=== PATIENT | male | born 1960 | race Two or more races ===

== ENCOUNTER 2016-09-28 11:30 | Emergency (ER) | payer OTHER ==
[~2016-09-28] VITALS: Ht 165.1 cm; Wt 65.0 kg
[~2016-09-28 11:30] MED LIST: AMIL5TAB2 PO; ASPI-496 PO; ASPI-621 PO; ASPI81TA50 PO; ATOR20TA PO; ATOR20TA9 PO; CHOL100018 PO; CIPR500T3 PO; CLIN300C93 PO; CYCL50CA3 PO; FERR324T5 PO; FERR325T20 PO; FURO-92 PO; FURO40TA6 PO; LEVE750T13 PO; LEVE750T8 PO; LISI-170 PO; LISI5TAB7 PO; METO5TAB5 PO; MULT-717 PO; POTA10TA11 PO; POTA10TA12 PO; POTA10TA90 PO; POTA20TA14 PO; PRED20TA PO; Prednisone PO; RIVA15TA PO; RIVA20TA PO; SULF1TAB3 PO; TORS20TA2 PO; TRAM50TA2 PO; TRAZ100T15 PO; VITA150T PO
[2016-09-28 11:38] VITALS: BP 90/60
[2016-09-28 12:33] LABS: BLOOD UREA NITROGEN 22 mg/dL (7-18)
== END 2016-09-28 14:52 | disposition home or self-care (01) ==
LOC: ED 11:44
DX: Z72.820 Sleep deprivation (principal); E78.5 Hyperlipidemia, unspecified; E87.5 Hyperkalemia; I12.9 Hypertensive chronic kidney disease with stage 1 through stage 4 chronic kidney disease, or unspecified chronic kidney disease; N18.9 Chronic kidney disease, unspecified; N04.9 Nephrotic syndrome with unspecified morphologic changes; I25.10 Atherosclerotic heart disease of native coronary artery without angina pectoris
CPT/HCPCS: 36415; 80048; 82040; 85025; 93005; 99285

== ENCOUNTER 2016-10-30 20:06 | Emergency (ER) | payer OTHER ==
[~2016-10-30] VITALS: Ht 165.1 cm; Wt 68.2 kg
[2016-10-30] MEDS ORDERED: SODIUM CHLORIDE 0.9% 1,000ML IVBOLUS ONE (20:30)
[2016-10-30 21:21] LABS: BLOOD UREA NITROGEN 14 mg/dL (7-18)
[2016-10-30 22:25] VITALS: BP 102/59
== END 2016-10-30 22:26 | disposition home or self-care (01) ==
LOC: ED 20:43
DX: R56.9 Unspecified convulsions (principal); G40.909 Epilepsy, unspecified, not intractable, without status epilepticus; E78.5 Hyperlipidemia, unspecified; E87.5 Hyperkalemia; I25.2 Old myocardial infarction; I12.9 Hypertensive chronic kidney disease with stage 1 through stage 4 chronic kidney disease, or unspecified chronic kidney disease; N18.9 Chronic kidney disease, unspecified; I95.9 Hypotension, unspecified; N28.9 Disorder of kidney and ureter, unspecified; I25.10 Atherosclerotic heart disease of native coronary artery without angina pectoris
CPT/HCPCS: 36415; 80048; 80185; 96360; 99284; J7030

== ENCOUNTER 2017-04-17 12:24 | Emergency (ER) | payer OTHER ==
[~2017-04-17] VITALS: Ht 152.4 cm; Wt 61.4 kg
[~2017-04-17 12:24] MED LIST changes: +CHOL100012 PO; -CHOL100018 PO; +CLIN300C8 PO; -CLIN300C93 PO; +FERR325T18 PO; -FERR325T20 PO; +POTA10TA6 PO; -POTA10TA90 PO; +SULF-169 PO; -SULF1TAB3 PO
[2017-04-17] MEDS ORDERED: KETOROLAC 30 MG/1 ML ONE (13:16)
[2017-04-17] MEDS ORDERED: KETOROLAC 30 MG/1 ML IM ONE (13:30)
[2017-04-17 13:53] VITALS: BP 124/84
== END 2017-04-17 13:56 | disposition home or self-care (01) ==
LOC: ED 13:49
DX: S39.012A Strain of muscle, fascia and tendon of lower back, initial encounter (principal); M54.42 Lumbago with sciatica, left side; I12.9 Hypertensive chronic kidney disease with stage 1 through stage 4 chronic kidney disease, or unspecified chronic kidney disease; N18.9 Chronic kidney disease, unspecified; E78.5 Hyperlipidemia, unspecified; I25.10 Atherosclerotic heart disease of native coronary artery without angina pectoris; I25.2 Old myocardial infarction; X58.XXXA Exposure to other specified factors, initial encounter; Y93.89 Activity, other specified; Y92.89 Other specified places as the place of occurrence of the external cause; Y99.8 Other external cause status
CPT/HCPCS: 72110; 96372; 99284; J1885

== ENCOUNTER 2017-05-01 09:13 | Emergency (ER) | payer OTHER ==
[~2017-05-01] VITALS: Ht 154.9 cm; Wt 59.8 kg
[2017-05-01 09:15] VITALS: BP 109/73
[2017-05-01] MEDS ORDERED: METHOCARBAMOL 750 MG TABLET ONE (10:10)
[2017-05-01] MEDS ORDERED: KETOROLAC 30 MG/1 ML ONE (10:10)
[2017-05-01] MEDS ORDERED: METHOCARBAMOL 750 MG TABLET PO ONE (10:30)
[2017-05-01] MEDS ORDERED: KETOROLAC 30 MG/1 ML IM ONE (10:30)
== END 2017-05-01 10:52 | disposition home or self-care (01) ==
LOC: ED 10:27
DX: M54.42 Lumbago with sciatica, left side (principal); I25.2 Old myocardial infarction; E78.00 Pure hypercholesterolemia, unspecified; I12.9 Hypertensive chronic kidney disease with stage 1 through stage 4 chronic kidney disease, or unspecified chronic kidney disease; N18.9 Chronic kidney disease, unspecified; I25.10 Atherosclerotic heart disease of native coronary artery without angina pectoris; L02.611 Cutaneous abscess of right foot; Z86.711 Personal history of pulmonary embolism
CPT/HCPCS: 96372; 99283; J1885; J7512

== ENCOUNTER 2017-07-07 06:19 | Emergency (ER) | payer OTHER ==
[~2017-07-07] VITALS: Ht 170.2 cm; Wt 59.6 kg
[2017-07-07 06:21] VITALS: BP 110/74
[2017-07-07] MEDS ORDERED: DIAZEPAM 5 MG TABLET PO ONE (07:00)
[2017-07-07] MEDS ORDERED: KETOROLAC 30 MG/1 ML IM ONE (07:00)
[2017-07-07] MEDS ORDERED: DIAZEPAM 5 MG TABLET ONE (07:01)
[2017-07-07] MEDS ORDERED: KETOROLAC 30 MG/1 ML ONE (07:07)
== END 2017-07-07 08:16 | disposition home or self-care (01) ==
LOC: ED 07:55
DX: M54.42 Lumbago with sciatica, left side (principal); E78.00 Pure hypercholesterolemia, unspecified; I12.9 Hypertensive chronic kidney disease with stage 1 through stage 4 chronic kidney disease, or unspecified chronic kidney disease; N18.9 Chronic kidney disease, unspecified; I25.2 Old myocardial infarction; I95.9 Hypotension, unspecified
CPT/HCPCS: 96372; 99283; J1885

== ENCOUNTER 2017-07-08 08:40 | Emergency (ER) | payer OTHER ==
[~2017-07-08] VITALS: Ht 157.5 cm; Wt 60.3 kg
[2017-07-08 10:48] VITALS: BP 101/65
== END 2017-07-08 10:50 | disposition home or self-care (01) ==
LOC: ED 09:09
DX: M54.32 Sciatica, left side (principal); E78.00 Pure hypercholesterolemia, unspecified; N18.9 Chronic kidney disease, unspecified; I12.9 Hypertensive chronic kidney disease with stage 1 through stage 4 chronic kidney disease, or unspecified chronic kidney disease; I25.2 Old myocardial infarction; I25.10 Atherosclerotic heart disease of native coronary artery without angina pectoris; Z86.711 Personal history of pulmonary embolism; Z86.718 Personal history of other venous thrombosis and embolism
CPT/HCPCS: 72110; 99284; J7512

== ENCOUNTER 2017-07-12 23:18 | Emergency (ER) | payer OTHER ==
[~2017-07-12] VITALS: Ht 152.4 cm; Wt 59.7 kg
[2017-07-12 23:28] VITALS: BP 101/69
[2017-07-13 00:04] LABS: BASOPHILS # (AUTO) 0.03 x10^3/uL (0-0.1); BASOPHILS % (AUTO) 0 % (0-1); EOSINOPHILS # (AUTO) 0.22 x10^3/uL (0-0.4); EOSINOPHILS % (AUTO) 2 % (1-7); LYMPHOCYTES # (AUTO) 2.24 x10^3/uL (1-3.4); LYMPHOCYTES % (AUTO) 25 % (22-44); MD NO; MEAN CORPUSCULAR HEMOGLOBIN 32.5 pg (27.5-34.5); MEAN CORPUSCULAR HGB CONC 34.2 g/dL (33.2-36.2); MEAN PLATELET VOLUME 7.8 fL (7.4-10.4); MONOCYTES # (AUTO) 0.66 x10^3/uL (0.2-0.8); MONOCYTES % (AUTO) 7 % (2-9); NEUTROPHILS # (AUTO) 5.77 x10^3/uL (1.8-6.8); NEUTROPHILS % (AUTO) 65 % (42-75); PLATELET COUNT 308 x10^3/uL (130-400); RED BLOOD COUNT 4.63 x10^6/uL (4.38-5.82)
[2017-07-13 00:13] LABS: ALBUMIN 3.6 g/dL (3.4-5.0); ANION GAP 7 mmol/L (5-15); CALCIUM 8.3 mg/dL (8.5-10.1); CHLORIDE 105 mmol/L (98-107); CREATININE 1.04 mg/dL (0.7-1.3)
[2017-07-13 01:09] LABS: INTERNATIONAL NORMALIZED RATIO 0.95 (0.93-1.1); PROTHROMBIN TIME 9.8 Seconds (9.6-11.5)
[2017-07-13] MEDS ORDERED: RIVAROXABAN 15 MG TABLET PO ONE (01:30)
== END 2017-07-13 ==
LOC: ED 23:54
DX: I82.432 Acute embolism and thrombosis of left popliteal vein (principal); E78.00 Pure hypercholesterolemia, unspecified; I13.10 Hypertensive heart and chronic kidney disease without heart failure, with stage 1 through stage 4 chronic kidney disease, or unspecified chronic kidney disease; N18.9 Chronic kidney disease, unspecified; I25.2 Old myocardial infarction; I25.10 Atherosclerotic heart disease of native coronary artery without angina pectoris; Z86.718 Personal history of other venous thrombosis and embolism; Z86.711 Personal history of pulmonary embolism
CPT/HCPCS: 36415; 80048; 82040; 85025; 85610; 85730; 99285

== ENCOUNTER 2017-08-06 16:47 | Emergency (ER) | payer OTHER ==
[~2017-08-06] VITALS: Ht 152.4 cm; Wt 59.4 kg
[2017-08-06 16:52] VITALS: BP 95/60
[2017-08-06] MEDS ORDERED: HYDROcodone/APAP 5/325 TABLET PO ONE (18:00)
[2017-08-06] MEDS ORDERED: HYDROcodone/APAP 5/325 TABLET ONE (18:08)
== END 2017-08-06 18:27 | disposition home or self-care (01) ==
LOC: ED 18:21
DX: M79.662 Pain in left lower leg (principal); I82.532 Chronic embolism and thrombosis of left popliteal vein; E78.00 Pure hypercholesterolemia, unspecified; I25.2 Old myocardial infarction; I25.10 Atherosclerotic heart disease of native coronary artery without angina pectoris; N18.9 Chronic kidney disease, unspecified; E78.5 Hyperlipidemia, unspecified; Z88.0 Allergy status to penicillin
CPT/HCPCS: 99283

== ENCOUNTER 2017-10-03 19:29 | Inpatient (IN) | payer OTHER ==
[~2017-10-03] VITALS: Ht 154.9 cm; Wt 63.0 kg
[2017-10-03] MEDS ORDERED: SODIUM CHLORIDE FLUSH 10ML SYR IVF ONE (20:00)
[2017-10-03] MEDS ORDERED: SODIUM CHLORIDE 0.9% 1,000ML IVBOLUS ONE ×2 (20:00→23:00)
[2017-10-03] MEDS ORDERED: ONDANSETRON 2MG/ML, 2ML ONE (20:00)
[2017-10-03] MEDS ORDERED: ONDANSETRON 2MG/ML, 2ML IVPush ONE (20:00)
[2017-10-03 20:02] LABS: BASOPHILS # (AUTO) 0.01 x10^3/uL (0-0.1); BASOPHILS % (AUTO) 0 % (0-1); EOSINOPHILS # (AUTO) 0.01 x10^3/uL (0-0.4); EOSINOPHILS % (AUTO) 0 % (1-7); LYMPHOCYTES # (AUTO) 0.82 x10^3/uL (1-3.4); LYMPHOCYTES % (AUTO) 8 % (22-44); MD NO; MEAN CORPUSCULAR HEMOGLOBIN 32.8 pg (27.5-34.5); MEAN CORPUSCULAR HGB CONC 34.2 g/dL (33.2-36.2); MEAN PLATELET VOLUME 8.4 fL (7.4-10.4); MONOCYTES # (AUTO) 0.41 x10^3/uL (0.2-0.8); MONOCYTES % (AUTO) 4 % (2-9); NEUTROPHILS % (AUTO) 88 % (42-75); PLATELET COUNT 245 x10^3/uL (130-400); RED BLOOD COUNT 4.51 x10^6/uL (4.38-5.82); RED CELL DISTRIBUTION WIDTH 12.8 % (9.4-14.8)
[2017-10-03 20:10] LABS: ANION GAP 6 mmol/L (5-15); CALCIUM 9.3 mg/dL (8.5-10.1); CHLORIDE 108 mmol/L (98-107); CREATININE 1.05 mg/dL (0.7-1.3)
[2017-10-03 20:11] LABS: ALANINE AMINOTRANSFERASE 34 U/L (12-78)
[2017-10-03 20:13] LABS: ALKALINE PHOSPHATASE 120 U/L (45-117); BILIRUBIN,TOTAL 0.4 mg/dL (0.2-1.0); TOTAL PROTEIN 7.4 g/dL (6.4-8.2)
[2017-10-03 20:29] LABS: TROPONIN I < 0.015 ng/mL (0.000-0.045)
[2017-10-03] MEDS ORDERED: PROMETHAZINE 25 MG/ML, 1ML IM PRN (23:30)
[2017-10-03] MEDS ORDERED: BISACODYL 10 MG SUPP PR PRN (23:30)
[2017-10-03] MEDS ORDERED: OXYcodone IR 5MG TABLET PO PRN (23:30)
[2017-10-03] MEDS ORDERED: ONDANSETRON 2MG/ML, 2ML IVPush PRN (23:30)
[2017-10-03] MEDS ORDERED: DOCUSATE 100 MG CAPSULE PO PRN (23:30)
[2017-10-03] MEDS ORDERED: morphine SULFATE 10 MG/ML, 1ML IVPush PRN (23:30)
[2017-10-03] MEDS ORDERED: ACETAMINOPHEN 325 MG TABLET PO PRN (23:30)
[2017-10-03] MEDS ORDERED: ONDANSETRON ODT 4 MG PO PRN (23:30)
[2017-10-03] MEDS ORDERED: POLYETHYLENE GLYCOL 17 GM PACKET PO PRN (23:30)
[2017-10-03] MEDS ORDERED: hydrALAzine 20 MG/ML, 1ML IVPush PRN (23:30)
[2017-10-03 23:38] LABS: MICROSCOPIC NOT IND
[2017-10-03 23:45] LABS: CULTURE INDICATED? NO
[2017-10-04] VITALS (8 sets, daily range): BP systolic 91–116; BP diastolic 54–73
[2017-10-04 00:16] LABS: THYROID STIMULATING HORMONE 0.823 mIU/L (0.358-3.740)
[2017-10-04 00:22] LABS: HEMOGLOBIN A1C 5.6 % (4.2-6.3)
[2017-10-04] MEDS: LEVETIRACETAM 500 MG TABLET PO SCH ×3 (00:25→20:09)
[2017-10-04] MEDS: ATORVASTATIN 20 MG TABLET PO SCH ×2 (00:25→20:09)
[2017-10-04] MEDS: SODIUM CHLORIDE 0.9% 1,000 ML IV SCH ×2 (00:26→12:15)
[2017-10-04 02:56] LABS: TROPONIN I < 0.015 ng/mL (0.000-0.045)
[2017-10-04] MEDS ORDERED: RIVAROXABAN 20 MG TABLET PO SCH (06:00)
[2017-10-04] MEDS: FERROUS SULFATE 325 MG TABLET PO SCH (09:51)
[2017-10-04] MEDS: RIVAROXABAN 20 MG TABLET PO SCH (09:51)
[2017-10-04] MEDS: ASPIRIN 81 MG TABLET CHEW PO SCH (09:51)
[2017-10-04] MEDS: CHOLECALCIFEROL 1,000 UNIT TABLET PO SCH (09:51)
[2017-10-04] MEDS: MULTIVITAMIN 1 TABLET PO SCH (09:51)
[2017-10-04] MEDS: MULTIVITS,STRESS FORMULA 1 TABLET PO SCH (09:51)
[2017-10-05 01:23] VITALS: BP 98/60
[2017-10-05 03:47] VITALS: BP 121/77
[2017-10-05 07:49] VITALS: BP 116/70
[2017-10-05] MEDS: RIVAROXABAN 20 MG TABLET PO SCH (08:53)
[2017-10-05] MEDS: ASPIRIN 81 MG TABLET CHEW PO SCH (08:53)
[2017-10-05] MEDS: MULTIVITS,STRESS FORMULA 1 TABLET PO SCH (08:53)
[2017-10-05] MEDS: CHOLECALCIFEROL 1,000 UNIT TABLET PO SCH (08:53)
[2017-10-05] MEDS: LEVETIRACETAM 500 MG TABLET PO SCH (08:53)
[2017-10-05] MEDS: FERROUS SULFATE 325 MG TABLET PO SCH (08:53)
[2017-10-05] MEDS: MULTIVITAMIN 1 TABLET PO SCH (08:53)
== END 2017-10-05 11:35 | disposition home or self-care (01) | DRG 315 ==
LOC: ED 23:06 → EDIP 23:07 → 4EST 23:52
PROVIDERS: ADMIT Internal Medicine; ATTEND Internal Medicine
DX: I95.0 Idiopathic hypotension (principal); D68.59 Other primary thrombophilia; E11.22 Type 2 diabetes mellitus with diabetic chronic kidney disease; E78.5 Hyperlipidemia, unspecified; R11.2 Nausea with vomiting, unspecified; R42 Dizziness and giddiness; R55 Syncope and collapse; G40.909 Epilepsy, unspecified, not intractable, without status epilepticus; I12.9 Hypertensive chronic kidney disease with stage 1 through stage 4 chronic kidney disease, or unspecified chronic kidney disease; I25.10 Atherosclerotic heart disease of native coronary artery without angina pectoris; E11.69 Type 2 diabetes mellitus with other specified complication; M27.2 Inflammatory conditions of jaws; N18.3 Chronic kidney disease, stage 3 (moderate); Z79.899 Other long term (current) drug therapy; Z86.711 Personal history of pulmonary embolism; I25.2 Old myocardial infarction; Z87.441 Personal history of nephrotic syndrome; Z86.718 Personal history of other venous thrombosis and embolism; Z79.82 Long term (current) use of aspirin
CPT/HCPCS: 36415; 80053; 80307; 81003; 83036; 83690; 83735; 84443; 84484; 85025; 93005; 96374; J2405; J7030

== ENCOUNTER 2017-12-11 12:12 | Emergency (ER) | payer OTHER ==
[~2017-12-11] VITALS: Ht 157.5 cm; Wt 61.0 kg
[~2017-12-11 12:12] MED LIST changes: +TRAZ-137 PO; -TRAZ100T15 PO
[2017-12-11 12:17] VITALS: BP 128/84
== END 2017-12-11 14:05 | disposition home or self-care (01) ==
LOC: ED 13:14
DX: L98.9 Disorder of the skin and subcutaneous tissue, unspecified (principal); G89.11 Acute pain due to trauma; M79.675 Pain in left toe(s); I10 Essential (primary) hypertension; I25.10 Atherosclerotic heart disease of native coronary artery without angina pectoris; I25.2 Old myocardial infarction; E11.22 Type 2 diabetes mellitus with diabetic chronic kidney disease; I13.10 Hypertensive heart and chronic kidney disease without heart failure, with stage 1 through stage 4 chronic kidney disease, or unspecified chronic kidney disease; N18.9 Chronic kidney disease, unspecified; E78.00 Pure hypercholesterolemia, unspecified; Z86.718 Personal history of other venous thrombosis and embolism
CPT/HCPCS: 99284

== ENCOUNTER 2017-12-19 14:02 | Emergency (ER) | payer OTHER ==
[~2017-12-19] VITALS: Ht 154.9 cm; Wt 63.3 kg
[2017-12-19 14:51] LABS: BASOPHILS # (AUTO) 0.03 x10^3/uL (0-0.1); BASOPHILS % (AUTO) 1 % (0-1); EOSINOPHILS # (AUTO) 0.25 x10^3/uL (0-0.4); EOSINOPHILS % (AUTO) 4 % (1-7); LYMPHOCYTES # (AUTO) 1.71 x10^3/uL (1-3.4); LYMPHOCYTES % (AUTO) 27 % (22-44); MD NO; MEAN CORPUSCULAR HEMOGLOBIN 33.7 pg (27.5-34.5); MEAN CORPUSCULAR HGB CONC 35.6 g/dL (33.2-36.2); MEAN CORPUSCULAR VOLUME 94.6 fL (81-97); MEAN PLATELET VOLUME 8.3 fL (7.4-10.4); MONOCYTES # (AUTO) 0.58 x10^3/uL (0.2-0.8); MONOCYTES % (AUTO) 9 % (2-9); NEUTROPHILS # (AUTO) 3.76 x10^3/uL (1.8-6.8); NEUTROPHILS % (AUTO) 59 % (42-75); PLATELET COUNT 253 x10^3/uL (130-400); RED BLOOD COUNT 4.91 x10^6/uL (4.38-5.82); RED CELL DISTRIBUTION WIDTH 12.5 % (9.4-14.8)
[2017-12-19 14:54] LABS: ALBUMIN 3.7 g/dL (3.4-5.0); ANION GAP 6 mmol/L (5-15); CALCIUM 8.7 mg/dL (8.5-10.1); CHLORIDE 108 mmol/L (98-107)
[2017-12-19 14:57] LABS: ALKALINE PHOSPHATASE 115 U/L (45-117); BILIRUBIN,TOTAL 0.5 mg/dL (0.2-1.0); CREATININE 1.21 mg/dL (0.7-1.3); TOTAL PROTEIN 7.4 g/dL (6.4-8.2)
[2017-12-19 15:07] LABS: ALANINE AMINOTRANSFERASE 40 U/L (12-78)
[2017-12-19] MEDS ORDERED: [UNRECOGNIZED DRUG - REMARK] PO (15:33)
[2017-12-19] MEDS ORDERED: ATOR20TA9 PO (15:33)
[2017-12-19] MEDS ORDERED: RIVA20TA PO (15:33)
[2017-12-19 16:09] VITALS: BP 114/79
[2017-12-19 16:09] LABS: MICROSCOPIC INDICATED
[2017-12-19 16:25] LABS: CULTURE INDICATED? NO
== END 2017-12-19 16:11 | disposition home or self-care (01) ==
LOC: ED 15:10
DX: R14.0 Abdominal distension (gaseous) (principal)
CPT/HCPCS: 36415; 80053; 81001; 83690; 85025; 93005; 99285

== ENCOUNTER 2018-02-01 09:28 | Emergency (ER) | payer OTHER ==
[~2018-02-01] VITALS: Ht 157.5 cm; Wt 63.6 kg
[~2018-02-01 09:28] MED LIST changes: +[UNRECOGNIZED DRUG - REMARK] PO
[2018-02-01 09:44] VITALS: BP 113/71
== END 2018-02-01 10:46 | disposition home or self-care (01) ==
LOC: ED 10:40
DX: I87.2 Venous insufficiency (chronic) (peripheral) (principal); I83.813 Varicose veins of bilateral lower extremities with pain; L20.84 Intrinsic (allergic) eczema; E11.9 Type 2 diabetes mellitus without complications; E78.00 Pure hypercholesterolemia, unspecified; I12.9 Hypertensive chronic kidney disease with stage 1 through stage 4 chronic kidney disease, or unspecified chronic kidney disease; N18.9 Chronic kidney disease, unspecified; I25.2 Old myocardial infarction; I25.10 Atherosclerotic heart disease of native coronary artery without angina pectoris; Z86.718 Personal history of other venous thrombosis and embolism
CPT/HCPCS: 99283

== ENCOUNTER 2018-02-04 10:25 | Emergency (ER) | payer OTHER ==
[~2018-02-04] VITALS: Ht 154.9 cm; Wt 64.0 kg
[2018-02-04 11:39] LABS: BASOPHILS # (AUTO) 0.03 x10^3/uL (0-0.1); BASOPHILS % (AUTO) 1 % (0-1); EOSINOPHILS # (AUTO) 0.31 x10^3/uL (0-0.4); EOSINOPHILS % (AUTO) 5 % (1-7); LYMPHOCYTES % (AUTO) 25 % (22-44); MD NO; MEAN CORPUSCULAR HEMOGLOBIN 32.6 pg (27.5-34.5); MEAN CORPUSCULAR HGB CONC 34.5 g/dL (33.2-36.2); MEAN CORPUSCULAR VOLUME 94.5 fL (81-97); MEAN PLATELET VOLUME 7.9 fL (7.4-10.4); MONOCYTES # (AUTO) 0.52 x10^3/uL (0.2-0.8); MONOCYTES % (AUTO) 9 % (2-9); NEUTROPHILS # (AUTO) 3.54 x10^3/uL (1.8-6.8); NEUTROPHILS % (AUTO) 60 % (42-75); PLATELET COUNT 282 x10^3/uL (130-400); RED CELL DISTRIBUTION WIDTH 12.3 % (9.4-14.8)
[2018-02-04 11:40] LABS: HCT (SEDRATE) 44.4 % (39.2-51.8)
[2018-02-04 11:49] LABS: ALBUMIN 3.7 g/dL (3.4-5.0); ANION GAP 7 mmol/L (5-15); CALCIUM 9.1 mg/dL (8.5-10.1); CHLORIDE 109 mmol/L (98-107)
[2018-02-04 11:53] LABS: ALANINE AMINOTRANSFERASE 38 U/L (12-78); ALKALINE PHOSPHATASE 110 U/L (45-117); BILIRUBIN,TOTAL 0.3 mg/dL (0.2-1.0); CREATININE 1.01 mg/dL (0.7-1.3); TOTAL PROTEIN 7.3 g/dL (6.4-8.2)
[2018-02-04 12:00] VITALS: BP 128/89
== END 2018-02-04 12:49 | disposition home or self-care (01) ==
LOC: ED 11:32
DX: L20.9 Atopic dermatitis, unspecified (principal); E11.22 Type 2 diabetes mellitus with diabetic chronic kidney disease; I12.9 Hypertensive chronic kidney disease with stage 1 through stage 4 chronic kidney disease, or unspecified chronic kidney disease; N18.9 Chronic kidney disease, unspecified; E78.00 Pure hypercholesterolemia, unspecified; I25.2 Old myocardial infarction; E78.5 Hyperlipidemia, unspecified; Z86.718 Personal history of other venous thrombosis and embolism
CPT/HCPCS: 36415; 80053; 85025; 85651; 99284

== ENCOUNTER 2018-06-04 06:41 | Emergency (ER) | payer OTHER ==
[~2018-06-04] VITALS: Ht 170.2 cm; Wt 63.3 kg
[~2018-06-04 06:41] MED LIST changes: -ASPI-621 PO; +ASPI81TA45 PO; +ATOR20TA37 PO; -ATOR20TA9 PO; -LEVE750T13 PO; +LEVE750T21 PO
[2018-06-04 06:43] VITALS: BP 130/75
--- NOTE | 2018-06-04 07:10 | NUR ---
FIRST CONTACT WITH PT. JACQUI at bedside. Pt states he fell a couple of weeks ago and he has had pain on his left flank and buttock since. Pt denies loss of bowel or bladder control, numbness, tingling, or loss of sensation. Pt denies cp, sob, n/v/d, or ecchymosis. Pt states he took some over the counter meds for pain. All safety measures in place. Call light within reach. Pt's family at bedside. Pt connected to NIBP and continous pulse ox.
[2018-06-04] MEDS ORDERED: KETOROLAC 30 MG/1 ML ONE (07:20)
[2018-06-04] MEDS ORDERED: KETOROLAC 30 MG/1 ML IM ONE (07:30)
--- NOTE | 2018-06-04 07:41 | NUR ---
Pt transported to x-ray on [facility].
--- NOTE | 2018-06-04 07:42 | NUR ---
Pt back to room from x-ray on [facility].
--- NOTE | 2018-06-04 08:38 | NUR ---
Patient given discharge instructions and they have confirmed that they understand the instructions. Patient ambulatory with steady gait. Pt left with discharge paperwork, prescription, and all personal belongings.
== END 2018-06-04 08:40 | disposition home or self-care (01) ==
LOC: ED 07:31
DX: G89.11 Acute pain due to trauma (principal); M54.5 Low back pain; I10 Essential (primary) hypertension; W18.30XA Fall on same level, unspecified, initial encounter; Y93.89 Activity, other specified; Y92.69 Other specified industrial and construction area as the place of occurrence of the external cause; Y99.0 Civilian activity done for income or pay
CPT/HCPCS: 72110; 96372; 99283; J1885

== ENCOUNTER 2018-06-08 13:51 | Emergency (ER) | payer OTHER ==
[~2018-06-08] VITALS: Ht 160 cm; Wt 62.1 kg
[2018-06-08 14:00] VITALS: BP 118/78
[2018-06-08] MEDS ORDERED: KETOROLAC 30 MG/1 ML ONE (14:18)
[2018-06-08] MEDS ORDERED: DIAZEPAM 5 MG TABLET ONE (14:18)
[2018-06-08] MEDS ORDERED: HYDROcodone/APAP 5/325 TABLET ONE (14:20)
--- NOTE | 2018-06-08 14:39 | NUR ---
pt to x ray now.
[2018-06-08] MEDS ORDERED: DIAZEPAM 5 MG TABLET PO ONE (15:00)
[2018-06-08] MEDS ORDERED: OXYcodone/APAP 5/325MG TABLET PO ONE (15:00)
[2018-06-08] MEDS ORDERED: HYDROcodone/APAP 5/325 TABLET PO ONE (15:00)
--- NOTE | 2018-06-08 15:09 | NUR ---
pt resting in room at this time. resps even and unlabored. is at bedside.
== END 2018-06-08 15:29 | disposition home or self-care (01) ==
LOC: MERGE 13:51 → UNMERGE 13:51 → ED 15:19
DX: S39.012A Strain of muscle, fascia and tendon of lower back, initial encounter (principal); E78.00 Pure hypercholesterolemia, unspecified; E11.22 Type 2 diabetes mellitus with diabetic chronic kidney disease; I12.9 Hypertensive chronic kidney disease with stage 1 through stage 4 chronic kidney disease, or unspecified chronic kidney disease; N18.9 Chronic kidney disease, unspecified; I25.2 Old myocardial infarction; I25.10 Atherosclerotic heart disease of native coronary artery without angina pectoris; E78.5 Hyperlipidemia, unspecified; X58.XXXA Exposure to other specified factors, initial encounter; Y93.89 Activity, other specified; Y92.89 Other specified places as the place of occurrence of the external cause; Y99.8 Other external cause status
CPT/HCPCS: 99283

== ENCOUNTER 2019-01-21 00:11 | Emergency (ER) | payer OTHER ==
[~2019-01-21] VITALS: Ht 165.1 cm; Wt 63.0 kg
[2019-01-21 00:13] VITALS: BP 123/78
--- NOTE | 2019-01-21 00:47 | NUR ---
MEDICAL STUDENT PERFORMING ASSESSMENT. MOBILE RN CLINICAL COORDINATOR USED. AT BEDSIDE AND SHE IS UPSET BECAUSE THIS IS THE THIRD TIME PT HAS BEEN SEEN FOR DIZZINESS IN THIS ED. PER , LAST TWO TIMES HE WAS SEEN HE WAS PERSCRIBED A MEDICATION FOR DIZZINESS AND BOTH TIMES IT DID NOT HELP.
--- NOTE | 2019-01-21 01:26 | NUR ---
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
--- NOTE | 2019-01-21 01:54 | NUR ---
UNABLE TO CALM DOWN, YELLING AND CURSING AT STAFF IN [facility]. PT AND ESCORTED OUT BY SECURITY.
== END 2019-01-21 01:56 | disposition home or self-care (01) ==
LOC: ED 00:51
DX: R42 Dizziness and giddiness (principal); E78.5 Hyperlipidemia, unspecified; I25.10 Atherosclerotic heart disease of native coronary artery without angina pectoris; E11.9 Type 2 diabetes mellitus without complications; I25.2 Old myocardial infarction; Z86.718 Personal history of other venous thrombosis and embolism
CPT/HCPCS: 93005; 99283

== ENCOUNTER 2019-08-26 19:56 | Emergency (ER) | payer OTHER ==
[~2019-08-26] VITALS: Ht 165.1 cm; Wt 66.4 kg
[~2019-08-26 19:56] MED LIST changes: +LEVE500T53 PO; -TRAZ-137 PO; +TRAZ-175 PO
--- NOTE | 2019-08-26 20:26 | NUR ---
THIS IS A 58 YO MALE, [place] SPEAKING ONLY. TYLER HANLEY AND JENNY AYALA IN ROOM. TYLER HANLEY USED FINANCE EFFECTIVENESS MANAGER. PATIENT C/O RIGHT SIDED FLANK PAIN RADIATING TO LUMBAR SPINE X2 DAYS, RATED 4/10, CURRENTLY TAKING TYLENOL WITH NORELIEF. DENIES PROBLEMS URINATING OR BOWEL MOVEMENTS. SPO2 AND BP MONITORING IN PLACE, [place]RI[place] AT THIS TIME, CALL LIGHT IN REACH
[2019-08-26] MEDS ORDERED: METHOCARBAMOL 750 MG TABLET PO ONE (20:30)
[2019-08-26] MEDS ORDERED: KETOROLAC 30 MG/1 ML IM ONE (20:30)
[2019-08-26] MEDS ORDERED: METHOCARBAMOL 750 MG TABLET ONE (20:31)
[2019-08-26] MEDS ORDERED: KETOROLAC 30 MG/1 ML ONE (20:31)
--- NOTE | 2019-08-26 20:38 | NUR ---
PATIENT MEDICATED PER EMAR, TOLERATED WELL
[2019-08-26 20:51] VITALS: BP 122/83
--- NOTE | 2019-08-26 21:13 | NUR ---
MUNIRA RN: Patient/Caregiver given discharge instructions and they have confirmed that they understand the instructions. Patient ambulatory with steady gait.
== END 2019-08-26 21:15 | disposition home or self-care (01) ==
LOC: ED 21:00
DX: M54.5 Low back pain (principal); I25.10 Atherosclerotic heart disease of native coronary artery without angina pectoris; I12.9 Hypertensive chronic kidney disease with stage 1 through stage 4 chronic kidney disease, or unspecified chronic kidney disease; E11.22 Type 2 diabetes mellitus with diabetic chronic kidney disease; N18.9 Chronic kidney disease, unspecified; E11.21 Type 2 diabetes mellitus with diabetic nephropathy; E78.00 Pure hypercholesterolemia, unspecified; I25.2 Old myocardial infarction; E78.5 Hyperlipidemia, unspecified
CPT/HCPCS: 96372; 99283; J1885

== ENCOUNTER 2019-09-01 19:56 | Emergency (ER) | payer OTHER ==
[~2019-09-01] VITALS: Ht 160 cm; Wt 67.1 kg
[2019-09-01] MEDS ORDERED: KETOROLAC 30 MG/1 ML ONE (20:22)
[2019-09-01] MEDS ORDERED: KETOROLAC 30 MG/1 ML IM ONE (20:30)
--- NOTE | 2019-09-01 20:50 | NUR ---
Report received and care assumed. Pt in CT via [facility]. Will assess upon return.
--- NOTE | 2019-09-01 21:06 | NUR ---
Pt returned from CT. Denies needs. VSS. Urinal placed at bedside and pt aware of UA. Call light in reach. Awaiting labs.
[2019-09-01 21:28] LABS: BASOPHILS # (AUTO) 0.03 x10^3/uL (0-0.1); BASOPHILS % (AUTO) 1 % (0-1); EOSINOPHILS # (AUTO) 0.22 x10^3/uL (0-0.4); EOSINOPHILS % (AUTO) 4 % (1-7); LYMPHOCYTES # (AUTO) 1.75 x10^3/uL (1-3.4); LYMPHOCYTES % (AUTO) 29 % (22-44); MD NO; MEAN CORPUSCULAR HEMOGLOBIN 32.5 pg (27.5-34.5); MEAN CORPUSCULAR HGB CONC 33.5 g/dL (33.2-36.2); MEAN CORPUSCULAR VOLUME 96.8 fL (81-97); MEAN PLATELET VOLUME 8.1 fL (7.4-10.4); MONOCYTES % (AUTO) 10 % (2-9); NEUTROPHILS # (AUTO) 3.38 x10^3/uL (1.8-6.8); NEUTROPHILS % (AUTO) 57 % (42-75); PLATELET COUNT 224 x10^3/uL (130-400); RED BLOOD COUNT 4.38 x10^6/uL (4.38-5.82); RED CELL DISTRIBUTION WIDTH 13.3 % (9.4-14.8)
[2019-09-01 21:35] LABS: MICROSCOPIC AUTO
[2019-09-01 21:35] LABS: ANION GAP 5 mmol/L (5-15); CALCIUM 8.7 mg/dL (8.5-10.1); CHLORIDE 109 mmol/L (98-107)
--- NOTE | 2019-09-01 22:02 | NUR ---
ERP in to recheck pt.
[2019-09-01 22:26] VITALS: BP 120/72
== END 2019-09-01 22:30 | disposition home or self-care (01) ==
LOC: ED 22:05
DX: N20.1 Calculus of ureter (principal); R10.84 Generalized abdominal pain; I25.10 Atherosclerotic heart disease of native coronary artery without angina pectoris; I12.9 Hypertensive chronic kidney disease with stage 1 through stage 4 chronic kidney disease, or unspecified chronic kidney disease; E11.22 Type 2 diabetes mellitus with diabetic chronic kidney disease; N18.9 Chronic kidney disease, unspecified; I25.2 Old myocardial infarction; Z86.718 Personal history of other venous thrombosis and embolism; Z86.711 Personal history of pulmonary embolism
CPT/HCPCS: 36415; 74176; 80048; 81001; 85025; 96372; 99284; J1885

== ENCOUNTER 2019-09-21 12:07 | Emergency (ER) | payer OTHER ==
[~2019-09-21] VITALS: Ht 152.4 cm; Wt 65.0 kg
[2019-09-21] MEDS ORDERED: DIPHENHYDRAMINE 50 MG/ML, 1ML IM ONE (12:30)
[2019-09-21] MEDS ORDERED: FAMOTIDINE 20 MG TABLET PO ONE (12:30)
[2019-09-21] MEDS ORDERED: DIPHENHYDRAMINE 50 MG/ML, 1ML ONE (12:35)
[2019-09-21] MEDS ORDERED: FAMOTIDINE 20 MG TABLET ONE (12:35)
--- NOTE | 2019-09-21 12:40 | NUR ---
BREAK RN: PT MEDICATED PER ORDERS, UNDERSTANDS POC.
[2019-09-21 12:57] VITALS: BP 120/84
--- NOTE | 2019-09-21 13:02 | NUR ---
BREAK RN: PT STATES HE FEELS OKAY AFTER MEDS. D/C INSTRUCTIONS, MEDS & F/U APPT RV'WD WITH PT, HE VERBALIZES UNDERSTANDING. FRIEND AT BS, STATES SHE WILL CALL AN UBER FOR HER & PATIENT TO GET HOME. PT AMBULATED OUT OF ED WITHOUT DIFFICULTY.
== END 2019-09-21 13:03 | disposition home or self-care (01) ==
LOC: ED 12:57
DX: L23.2 Allergic contact dermatitis due to cosmetics (principal); I10 Essential (primary) hypertension; E11.9 Type 2 diabetes mellitus without complications
CPT/HCPCS: 96372; 99283; J1200; J7512

== ENCOUNTER 2019-10-29 20:56 | Emergency (ER) | payer OTHER ==
[~2019-10-29] VITALS: Ht 157.5 cm; Wt 62.0 kg
--- NOTE | 2019-10-29 23:13 | NUR ---
MARKETING AND COMMUNICATIONS OFFICER: PT. TO ROOM FROM LOBBY AT THIS TIME.
[2019-10-29 23:33] VITALS: BP 115/76
--- NOTE | 2019-10-29 23:36 | NUR ---
PT TO ED WITH C/O LEFT LOWER LEG PAIN, REPORTS CHEMICAL BURN AT WORK. PT HAS DRY SKIN WITH LESIONS AND CELLULITIS NOTED. PT REPORTS SKIN IRRITATION AROUND ANKLE IS NEW. PT PT CONNECTED TO MONITORING, CALL LIGHT WITHIN REACH, PROVIDED WARM BLANKET.
== END 2019-10-30 00:15 | disposition home or self-care (01) ==
LOC: ED 10-30 00:06
DX: L03.116 Cellulitis of left lower limb (principal); E11.22 Type 2 diabetes mellitus with diabetic chronic kidney disease; I13.10 Hypertensive heart and chronic kidney disease without heart failure, with stage 1 through stage 4 chronic kidney disease, or unspecified chronic kidney disease; N18.9 Chronic kidney disease, unspecified; I25.10 Atherosclerotic heart disease of native coronary artery without angina pectoris; E78.00 Pure hypercholesterolemia, unspecified; I25.2 Old myocardial infarction; Z86.718 Personal history of other venous thrombosis and embolism
CPT/HCPCS: 99283

== ENCOUNTER 2019-10-31 01:10 | Emergency (ER) | payer OTHER ==
[~2019-10-31] VITALS: Ht 170.2 cm; Wt 63.4 kg
[2019-10-31 03:10] VITALS: BP 114/72
[2019-10-31] MEDS ORDERED: CEFTRIAXONE 1,000 MG ONE (03:16)
[2019-10-31] MEDS ORDERED: CEFTRIAXONE 1,000 MG IM ONE (03:30)
--- NOTE | 2019-10-31 03:39 | NUR ---
PT MEDICATED WITH ABX AND TOLERATED WELL. PT AMBULATED OUT WITH A STEADY GAIT.
== END 2019-10-31 03:41 | disposition home or self-care (01) ==
LOC: ED 03:00
DX: L03.116 Cellulitis of left lower limb (principal); R50.9 Fever, unspecified; E78.00 Pure hypercholesterolemia, unspecified; E78.5 Hyperlipidemia, unspecified; I12.9 Hypertensive chronic kidney disease with stage 1 through stage 4 chronic kidney disease, or unspecified chronic kidney disease; E11.22 Type 2 diabetes mellitus with diabetic chronic kidney disease; N18.9 Chronic kidney disease, unspecified; I25.2 Old myocardial infarction; I25.10 Atherosclerotic heart disease of native coronary artery without angina pectoris; Z86.718 Personal history of other venous thrombosis and embolism; Z86.711 Personal history of pulmonary embolism
CPT/HCPCS: 96372; 99283; J0696

== ENCOUNTER 2019-11-05 20:44 | Emergency (ER) | payer OTHER ==
[~2019-11-05] VITALS: Ht 152.4 cm; Wt 61.9 kg
[2019-11-05] MEDS ORDERED: HYDROcodone/APAP 5/325 TABLET ONE (21:18)
--- NOTE | 2019-11-05 21:18 | NUR ---
PT TO ED WITH LEFT LOWER LEG SKIN PAIN. PT REPORTS USING NEOSPORIN AND TAKING CEPHALEXIN WITHOUT RELIEF. HAS BEEN SEEN IN THE ED BEFORE FOR SAME. PT DENIES ANY OTHER C/O AT THIS TIME. PT PLACED ON MONITORING, CALL LIGHT WITHIN REACH, ALL SAFETY MEASURES IN PLACE.
[2019-11-05 21:22] LABS: BASOPHILS # (AUTO) 0.03 x10^3/uL (0-0.1); BASOPHILS % (AUTO) 0 % (0-1); EOSINOPHILS # (AUTO) 0.25 x10^3/uL (0-0.4); EOSINOPHILS % (AUTO) 3 % (1-7); LYMPHOCYTES # (AUTO) 1.97 x10^3/uL (1-3.4); LYMPHOCYTES % (AUTO) 25 % (22-44); MD NO; MEAN CORPUSCULAR HEMOGLOBIN 32.8 pg (27.5-34.5); MEAN CORPUSCULAR HGB CONC 33.5 g/dL (33.2-36.2); MEAN CORPUSCULAR VOLUME 97.9 fL (81-97); MEAN PLATELET VOLUME 7.6 fL (7.4-10.4); MONOCYTES # (AUTO) 0.76 x10^3/uL (0.2-0.8); MONOCYTES % (AUTO) 10 % (2-9); NEUTROPHILS # (AUTO) 4.73 x10^3/uL (1.8-6.8); NEUTROPHILS % (AUTO) 61 % (42-75); PLATELET COUNT 325 x10^3/uL (130-400); RED BLOOD COUNT 4.17 x10^6/uL (4.38-5.82); RED CELL DISTRIBUTION WIDTH 12.6 % (9.4-14.8)
--- NOTE | 2019-11-05 21:24 | NUR ---
PT MEDICATED PER MAR, UPDATED ON POC. CALL LIGHT WITHIN REACH, MONTIRING IN PLACE.
[2019-11-05] MEDS ORDERED: HYDROcodone/APAP 5/325 TABLET PO ONE (21:30)
[2019-11-05 21:32] LABS: ALBUMIN 3.2 g/dL (3.4-5.0); ANION GAP 5 mmol/L (5-15); CALCIUM 8.7 mg/dL (8.5-10.1); CHLORIDE 110 mmol/L (98-107); CREATININE 1.22 mg/dL (0.7-1.3)
[2019-11-05 23:07] VITALS: BP 117/71
== END 2019-11-05 23:51 | disposition home or self-care (01) ==
LOC: ED 22:22
DX: T81.89XA Other complications of procedures, not elsewhere classified, initial encounter (principal); L03.116 Cellulitis of left lower limb; I10 Essential (primary) hypertension; E11.9 Type 2 diabetes mellitus without complications; E78.00 Pure hypercholesterolemia, unspecified; I25.10 Atherosclerotic heart disease of native coronary artery without angina pectoris; Z86.718 Personal history of other venous thrombosis and embolism
CPT/HCPCS: 36415; 80048; 82040; 85025; 99284

== ENCOUNTER 2019-11-09 14:17 | Emergency (ER) | payer OTHER ==
[~2019-11-09] VITALS: Ht 157.5 cm; Wt 61.0 kg
--- NOTE | 2019-11-09 16:54 | NUR ---
DESIGN CELL ENGINEER: PT AMBULATORY WITH STEADY GAIT TO ROOM AT THIS TIME.
[2019-11-09 17:14] VITALS: BP 128/79
--- NOTE | 2019-11-09 17:14 | NUR ---
FIRST CONTACT WITH PT. PT HAS ALLERGIC REACTION TO CHEMICALS WHILE CLEANING KITCHEN. EYES SWOLLEN/ITCHY. "BENADRYL HAS NOT WORKED" DENIES VISION CHANGES. PT'S AOX4. RESPS EVEN AND UNLABORED. BP/SPO2 MONITORS IN PLACE. CALL LIGHT WITHIN REACH. EDMD AT BEDSIDE EVALUATING AT THIS TIME.
--- NOTE | 2019-11-09 18:02 | NUR ---
Patient given discharge instructions and they have confirmed that they understand the instructions. Patient ambulatory with steady gait.
== END 2019-11-09 18:04 | disposition home or self-care (01) ==
LOC: ED 18:00
DX: T78.49XA Other allergy, initial encounter (principal); R21 Rash and other nonspecific skin eruption; X58.XXXA Exposure to other specified factors, initial encounter
CPT/HCPCS: 99283

== ENCOUNTER 2019-11-16 07:28 | Emergency (ER) | payer OTHER ==
[~2019-11-16] VITALS: Ht 157.5 cm; Wt 61.5 kg
[2019-11-16 07:31] VITALS: BP 114/77
== END 2019-11-16 07:59 ==
LOC: ED 07:42
DX: H10.023 Other mucopurulent conjunctivitis, bilateral (principal); I25.10 Atherosclerotic heart disease of native coronary artery without angina pectoris; I12.9 Hypertensive chronic kidney disease with stage 1 through stage 4 chronic kidney disease, or unspecified chronic kidney disease; E11.22 Type 2 diabetes mellitus with diabetic chronic kidney disease; N18.9 Chronic kidney disease, unspecified; E78.00 Pure hypercholesterolemia, unspecified; Z86.711 Personal history of pulmonary embolism; Z88.0 Allergy status to penicillin
CPT/HCPCS: 99283

== ENCOUNTER 2019-11-17 20:53 | Emergency (ER) | payer OTHER ==
[~2019-11-17] VITALS: Ht 172.7 cm; Wt 62.0 kg
[2019-11-17 20:55] VITALS: BP 139/81
[2019-11-17] MEDS ORDERED: PROPARACAINE OPHTH 0.5%, 15ML ONE (21:51)
[2019-11-17] MEDS ORDERED: FLUORESCEIN OPHTHALMIC 1 MG STRIP ONE ×2 (21:51→22:04)
[2019-11-17] MEDS ORDERED: PROPARACAINE OPHTH 0.5%, 15ML EACHEYE ONE (22:00)
[2019-11-17] MEDS ORDERED: FLUORESCEIN OPHTHALMIC 1 MG STRIP EACHEYE ONE (22:00)
== END 2019-11-17 22:32 ==
LOC: ED 22:26
DX: H10.33 Unspecified acute conjunctivitis, bilateral (principal)
CPT/HCPCS: 99283

== ENCOUNTER 2020-03-02 16:07 | Emergency (ER) | payer OTHER ==
[~2020-03-02] VITALS: Ht 170.2 cm; Wt 63.4 kg
[2020-03-02 17:07] LABS: BASOPHILS % (AUTO) 1 % (0-1); EOSINOPHILS % (AUTO) 3 % (1-7); LYMPHOCYTES % (AUTO) 25 % (22-44); MEAN CORPUSCULAR HEMOGLOBIN 32.7 pg (27.5-34.5); MEAN CORPUSCULAR HGB CONC 34.3 g/dL (33.2-36.2); MEAN PLATELET VOLUME 8.1 fL (7.4-10.4); MONOCYTES % (AUTO) 10 % (2-9); NEUTROPHILS % (AUTO) 61 % (42-75); PLATELET COUNT 288 x10^3/uL (130-400); RED BLOOD COUNT 4.75 x10^6/uL (4.38-5.82); RED CELL DISTRIBUTION WIDTH 13.4 % (9.4-14.8)
[2020-03-02 17:14] LABS: ALBUMIN 3.7 g/dL (3.4-5.0); ANION GAP 4 mmol/L (5-15); CALCIUM 9.4 mg/dL (8.5-10.1); CHLORIDE 109 mmol/L (98-107)
[2020-03-02 17:15] LABS: MD NO
[2020-03-02 17:19] LABS: ALANINE AMINOTRANSFERASE 47 U/L (12-78); ALKALINE PHOSPHATASE 134 U/L (45-117); BILIRUBIN,TOTAL 0.3 mg/dL (0.2-1.0); CREATININE 1.04 mg/dL (0.7-1.3); TOTAL PROTEIN 8.3 g/dL (6.4-8.2)
--- NOTE | 2020-03-02 17:53 | NUR ---
LAND DEPARTMENT HEAD: PT TO ROOM FROM [facility]
[2020-03-02] MEDS ORDERED: CEFTRIAXONE 1,000 MG IM ONE (19:30)
[2020-03-02] MEDS ORDERED: CEFTRIAXONE 1,000 MG ONE (19:58)
[2020-03-02 20:11] VITALS: BP 135/89
== END 2020-03-02 20:12 | disposition home or self-care (01) ==
LOC: ED 17:58
DX: L03.116 Cellulitis of left lower limb (principal); L97.328 Non-pressure chronic ulcer of left ankle with other specified severity; I25.10 Atherosclerotic heart disease of native coronary artery without angina pectoris; E11.22 Type 2 diabetes mellitus with diabetic chronic kidney disease; N18.9 Chronic kidney disease, unspecified; I13.0 Hypertensive heart and chronic kidney disease with heart failure and stage 1 through stage 4 chronic kidney disease, or unspecified chronic kidney disease; I50.9 Heart failure, unspecified; E78.5 Hyperlipidemia, unspecified; E78.00 Pure hypercholesterolemia, unspecified; I25.2 Old myocardial infarction; Z86.39 Personal history of other endocrine, nutritional and metabolic disease
CPT/HCPCS: 36415; 73610; 80053; 85025; 96372; 99284; J0696

== ENCOUNTER 2020-03-30 08:55 | Emergency (ER) | payer OTHER ==
[~2020-03-30] VITALS: Ht 162.6 cm; Wt 63.7 kg
[~2020-03-30 08:55] MED LIST changes: -CLIN300C8 PO; +CLIN300C9 PO
--- NOTE | 2020-03-30 09:15 | NUR ---
Patient able to void 150ml with post void residual of 11ml via bladder scan Urine sample sent to lab for analysis
[2020-03-30 09:30] LABS: BASOPHILS % (AUTO) 1 % (0-1); EOSINOPHILS % (AUTO) 1 % (1-7); LYMPHOCYTES % (AUTO) 27 % (22-44); MEAN CORPUSCULAR HEMOGLOBIN 33.1 pg (27.5-34.5); MEAN CORPUSCULAR HGB CONC 34.9 g/dL (33.2-36.2); MEAN PLATELET VOLUME 8.8 fL (7.4-10.4); MONOCYTES % (AUTO) 10 % (2-9); NEUTROPHILS % (AUTO) 61 % (42-75); PLATELET COUNT 234 x10^3/uL (130-400); RED BLOOD COUNT 4.49 x10^6/uL (4.38-5.82); RED CELL DISTRIBUTION WIDTH 13.5 % (9.4-14.8)
[2020-03-30 09:35] LABS: MD NO
[2020-03-30 09:43] LABS: ALANINE AMINOTRANSFERASE 36 U/L (12-78); ALBUMIN 3.7 g/dL (3.4-5.0); ANION GAP 4 mmol/L (5-15); CALCIUM 9.4 mg/dL (8.5-10.1); CHLORIDE 107 mmol/L (98-107)
[2020-03-30 09:46] LABS: ALKALINE PHOSPHATASE 95 U/L (45-117); BILIRUBIN,TOTAL 0.6 mg/dL (0.2-1.0); CREATININE 1.06 mg/dL (0.7-1.3); TOTAL PROTEIN 7.5 g/dL (6.4-8.2)
[2020-03-30 09:57] LABS: MICROSCOPIC INDICATED
[2020-03-30 11:00] VITALS: BP 90/53
[2020-03-30] MEDS ORDERED: SODIUM CHLORIDE FLUSH 10ML SYR IVF ONE (11:00)
--- NOTE | 2020-03-30 11:01 | NUR ---
WITH REASSESSMENT NO INCREASE IN DISCOMFORT VSS OF NIBP/POX PIV PLACED FOR PENDING CT UPDATED ON ESTIMATED POC
[2020-03-30] MEDS ORDERED: OMNIPAQUE 350 MG/ML, 100ML BOTTLE ONE (11:27)
--- NOTE | 2020-03-30 11:39 | NUR ---
pt back from ct now
== END 2020-03-30 12:13 | disposition home or self-care (01) ==
LOC: ED 09:22
DX: R31.29 Other microscopic hematuria (principal); I25.2 Old myocardial infarction; I25.10 Atherosclerotic heart disease of native coronary artery without angina pectoris; I12.9 Hypertensive chronic kidney disease with stage 1 through stage 4 chronic kidney disease, or unspecified chronic kidney disease; E11.22 Type 2 diabetes mellitus with diabetic chronic kidney disease; N18.9 Chronic kidney disease, unspecified
CPT/HCPCS: 36415; 72193; 80053; 81001; 85025; 99285; Q9967

== ENCOUNTER 2020-04-01 18:57 | Emergency (ER) | payer OTHER ==
[~2020-04-01] VITALS: Ht 157.5 cm; Wt 65.0 kg
--- NOTE | 2020-04-01 19:28 | NUR ---
PT AMBULATED TO RESTROOM WITH STEADY GAIT TO PROVIDE URINE SAMPLE. UA COLLECTED AND SENT TO LAB. PT CONNECTED TO MONITORING. CALL LIGHT IN REACH.
[2020-04-01 19:41] LABS: MICROSCOPIC NOT IND
[2020-04-01 19:44] LABS: BASOPHILS % (AUTO) 1 % (0-1); EOSINOPHILS % (AUTO) 3 % (1-7); LYMPHOCYTES % (AUTO) 30 % (22-44); MEAN CORPUSCULAR HEMOGLOBIN 33.1 pg (27.5-34.5); MEAN CORPUSCULAR HGB CONC 34.8 g/dL (33.2-36.2); MEAN PLATELET VOLUME 8.6 fL (7.4-10.4); MONOCYTES % (AUTO) 9 % (2-9); NEUTROPHILS % (AUTO) 57 % (42-75); PLATELET COUNT 256 x10^3/uL (130-400); RED CELL DISTRIBUTION WIDTH 13.8 % (9.4-14.8)
[2020-04-01 19:47] LABS: MD NO
[2020-04-01 19:55] LABS: ALANINE AMINOTRANSFERASE 30 U/L (12-78); ALBUMIN 3.9 g/dL (3.4-5.0); ANION GAP 3 mmol/L (5-15); CALCIUM 9.5 mg/dL (8.5-10.1); CHLORIDE 106 mmol/L (98-107); CREATININE 1.09 mg/dL (0.7-1.3)
[2020-04-01 19:58] LABS: ALKALINE PHOSPHATASE 100 U/L (45-117); BILIRUBIN,TOTAL 0.3 mg/dL (0.2-1.0); TOTAL PROTEIN 7.8 g/dL (6.4-8.2)
[2020-04-01 20:02] VITALS: BP 128/80
--- NOTE | 2020-04-01 20:02 | NUR ---
ALL RESULTS ARE BACK AT THIS TIME. CHART UP FOR RECHECK.
[2020-04-01] MEDS ORDERED: METHOCARBAMOL 750 MG TABLET ONE (20:06)
--- NOTE | 2020-04-01 20:08 | NUR ---
HAT BRIM CURLER PER MAR.
--- NOTE | 2020-04-01 20:19 | NUR ---
PROVIDER AT BEDSIDE TO UPDATE PT ON POC.
[2020-04-01] MEDS ORDERED: KETOROLAC 30 MG/1 ML ONE (20:20)
--- NOTE | 2020-04-01 20:24 | NUR ---
PRODUCE WRAPPER PER MAR.
[2020-04-01] MEDS ORDERED: METHOCARBAMOL 750 MG TABLET PO ONE (20:30)
[2020-04-01] MEDS ORDERED: KETOROLAC 30 MG/1 ML IM ONE (20:30)
== END 2020-04-01 20:46 | disposition home or self-care (01) ==
LOC: ED 20:07
DX: M54.5 Low back pain (principal); R31.9 Hematuria, unspecified; I25.2 Old myocardial infarction; N18.9 Chronic kidney disease, unspecified; E78.5 Hyperlipidemia, unspecified; Z86.711 Personal history of pulmonary embolism; Z86.718 Personal history of other venous thrombosis and embolism
CPT/HCPCS: 36415; 80053; 81003; 85025; 96372; 99283; J1885

== ENCOUNTER 2020-05-07 11:25 | Emergency (ER) | payer OTHER ==
[~2020-05-07] VITALS: Ht 154.9 cm; Wt 65.1 kg
[~2020-05-07 11:25] MED LIST changes: -CIPR500T3 PO; +CIPR500T4 PO
--- NOTE | 2020-05-07 12:04 | NUR ---
TUNNEL KILN OPERATOR: PT TO ROOM FROM LOBBY
[2020-05-07] MEDS ORDERED: ATOR20TA86 PO (12:35)
--- NOTE | 2020-05-07 12:37 | NUR ---
PT HERE WITH C/O DIZZINESS STARTED YESTERDAY AFTER GETTING OUT OF BED. PLACED CARDIAC AND VITALS MONITORS, FALL PRECAUTIONS IN PLACE AND CALL LIGHT PLACED WITHIN REACH.
[2020-05-07] MEDS ORDERED: MECLIZINE CHEWABLE 25 MG TAB ONE (13:23)
[2020-05-07 13:30] LABS: BASOPHILS % (AUTO) 1 % (0-1); EOSINOPHILS % (AUTO) 2 % (1-7); LYMPHOCYTES % (AUTO) 31 % (22-44); MEAN CORPUSCULAR HEMOGLOBIN 33.3 pg (27.5-34.5); MEAN CORPUSCULAR HGB CONC 34.9 g/dL (33.2-36.2); MEAN PLATELET VOLUME 8.5 fL (7.4-10.4); MONOCYTES % (AUTO) 8 % (2-9); NEUTROPHILS % (AUTO) 59 % (42-75); PLATELET COUNT 230 x10^3/uL (130-400); RED BLOOD COUNT 4.69 x10^6/uL (4.38-5.82); RED CELL DISTRIBUTION WIDTH 13.4 % (9.4-14.8)
[2020-05-07] MEDS ORDERED: MECLIZINE CHEWABLE 25 MG TAB PO ONE (13:30)
[2020-05-07 13:32] LABS: MD NO
[2020-05-07 13:40] LABS: ALBUMIN 3.7 g/dL (3.4-5.0); ANION GAP 5 mmol/L (5-15); CALCIUM 8.8 mg/dL (8.5-10.1); CHLORIDE 111 mmol/L (98-107); CREATININE 1.32 mg/dL (0.7-1.3)
[2020-05-07 14:14] VITALS: BP 119/76
== END 2020-05-07 14:26 | disposition home or self-care (01) ==
LOC: ED 12:21
DX: H81.13 Benign paroxysmal vertigo, bilateral (principal); R94.31 Abnormal electrocardiogram [ECG] [EKG]; I12.9 Hypertensive chronic kidney disease with stage 1 through stage 4 chronic kidney disease, or unspecified chronic kidney disease; N18.9 Chronic kidney disease, unspecified; I25.2 Old myocardial infarction; E78.5 Hyperlipidemia, unspecified
CPT/HCPCS: 36415; 80048; 82040; 85025; 93005; 99284

== ENCOUNTER 2020-09-23 06:11 | Emergency (ER) | payer OTHER ==
[~2020-09-23] VITALS: Ht 167.6 cm; Wt 62.5 kg
[~2020-09-23 06:11] MED LIST changes: +ATOR20TA86 PO; +POTA-138 PO; -POTA10TA12 PO
[2020-09-23] MEDS ORDERED: KETOROLAC 60 MG/2 ML ONE (06:45)
[2020-09-23] MEDS ORDERED: METHOCARBAMOL 500 MG TABLET ONE (06:46)
[2020-09-23] MEDS ORDERED: KETOROLAC 60 MG/2 ML IM ONE (07:00)
[2020-09-23] MEDS ORDERED: METHOCARBAMOL 500 MG TABLET PO ONE (07:00)
[2020-09-23 07:10] VITALS: BP 94/57
--- NOTE | 2020-09-23 07:10 | NUR ---
PT REC'VD DISCHARGE INSTRUCTIONS AND EDUCATION. NO FURTHER QUESTIONS.
--- NOTE | 2020-09-23 07:23 | NUR ---
PT AMBULATED TO DC AREA WITH SPOUSE, STEADY GAIT.
== END 2020-09-23 07:24 | disposition home or self-care (01) ==
LOC: ED 06:36
DX: M54.5 Low back pain (principal)
CPT/HCPCS: 96372; 99283; J1885

== ENCOUNTER 2020-11-29 00:30 | Emergency (ER) | payer OTHER ==
[~2020-11-29] VITALS: Ht 165.1 cm; Wt 63.9 kg
[2020-11-29 00:43] VITALS: BP 124/88
[2020-11-29 02:37] LABS: BASOPHILS % (AUTO) 1 % (0-1); EOSINOPHILS % (AUTO) 3 % (1-7); LYMPHOCYTES % (AUTO) 30 % (22-44); MEAN CORPUSCULAR HEMOGLOBIN 33.2 pg (27.5-34.5); MEAN CORPUSCULAR HGB CONC 34.4 g/dL (33.2-36.2); MONOCYTES % (AUTO) 10 % (2-9); NEUTROPHILS % (AUTO) 56 % (42-75); PLATELET COUNT 262 x10^3/uL (130-400); RED BLOOD COUNT 4.69 x10^6/uL (4.38-5.82)
[2020-11-29 02:46] LABS: ALBUMIN 3.8 g/dL (3.4-5.0); ANION GAP 6 mmol/L (5-15); CALCIUM 9.4 mg/dL (8.5-10.1); CHLORIDE 106 mmol/L (98-107); CREATININE 0.83 mg/dL (0.7-1.3)
== END 2020-11-29 04:13 | disposition home or self-care (01) ==
LOC: ED 03:30
DX: R42 Dizziness and giddiness (principal); I10 Essential (primary) hypertension; E11.9 Type 2 diabetes mellitus without complications
CPT/HCPCS: 36415; 80048; 82040; 85025; 93005; 99284

== ENCOUNTER 2020-12-05 23:34 | Emergency (ER) | payer OTHER ==
[~2020-12-05] VITALS: Ht 170.2 cm; Wt 63.9 kg
[2020-12-06 00:49] LABS: BASOPHILS % (AUTO) 1 % (0-1); EOSINOPHILS % (AUTO) 4 % (1-7); LYMPHOCYTES % (AUTO) 30 % (22-44); MEAN CORPUSCULAR HEMOGLOBIN 34.1 pg (27.5-34.5); MEAN PLATELET VOLUME 8.1 fL (7.4-10.4); MONOCYTES % (AUTO) 10 % (2-9); NEUTROPHILS % (AUTO) 55 % (42-75); PLATELET COUNT 239 x10^3/uL (130-400); RED BLOOD COUNT 4.76 x10^6/uL (4.38-5.82); RED CELL DISTRIBUTION WIDTH 12.7 % (9.4-14.8)
[2020-12-06 01:00] LABS: ANION GAP 4 mmol/L (5-15); CALCIUM 8.9 mg/dL (8.5-10.1); CHLORIDE 107 mmol/L (98-107); CREATININE 0.93 mg/dL (0.7-1.3)
[2020-12-06] MEDS ORDERED: LORazepam 1MG TABLET PO ONE (04:00)
[2020-12-06] MEDS ORDERED: LORazepam 1MG TABLET ONE (04:01)
[2020-12-06 04:08] VITALS: BP 96/75
== END 2020-12-06 04:41 | disposition home or self-care (01) ==
LOC: ED 23:45
DX: R42 Dizziness and giddiness (principal); I12.9 Hypertensive chronic kidney disease with stage 1 through stage 4 chronic kidney disease, or unspecified chronic kidney disease; N18.9 Chronic kidney disease, unspecified; E11.22 Type 2 diabetes mellitus with diabetic chronic kidney disease; I25.2 Old myocardial infarction; E78.00 Pure hypercholesterolemia, unspecified; E78.5 Hyperlipidemia, unspecified; I25.10 Atherosclerotic heart disease of native coronary artery without angina pectoris; Z86.718 Personal history of other venous thrombosis and embolism
CPT/HCPCS: 36415; 80048; 85025; 93005; 99284

== ENCOUNTER 2020-12-20 17:18 | Emergency (ER) | payer OTHER ==
[~2020-12-20] VITALS: Ht 154.9 cm; Wt 64.1 kg
[2020-12-20 17:27] VITALS: BP 106/74
[2020-12-20] MEDS ORDERED: DIAZEPAM 5 MG TABLET PO ONE (18:00)
[2020-12-20] MEDS ORDERED: KETOROLAC 30 MG/1 ML IM ONE (18:00)
--- NOTE | 2020-12-20 20:20 | NUR ---
pt to room from lobby
[2020-12-20] MEDS ORDERED: DIAZEPAM 5 MG TABLET ONE (20:34)
[2020-12-20] MEDS ORDERED: KETOROLAC 30 MG/1 ML ONE (20:35)
== END 2020-12-20 21:12 | disposition home or self-care (01) ==
LOC: ED 21:05
DX: S39.012A Strain of muscle, fascia and tendon of lower back, initial encounter (principal); I25.2 Old myocardial infarction; I12.9 Hypertensive chronic kidney disease with stage 1 through stage 4 chronic kidney disease, or unspecified chronic kidney disease; N18.9 Chronic kidney disease, unspecified; E78.5 Hyperlipidemia, unspecified; Z88.0 Allergy status to penicillin; Z86.718 Personal history of other venous thrombosis and embolism; X58.XXXA Exposure to other specified factors, initial encounter; Y93.89 Activity, other specified; Y92.89 Other specified places as the place of occurrence of the external cause; Y99.8 Other external cause status
CPT/HCPCS: 96372; 99283; J1885